=== PATIENT | female | born 2000 | race Caucasian/White ===

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

== ENCOUNTER 2020-10-16 16:17 | Emergency (ER) | payer OTHER ==
[2020-10-16 16:29] VITALS: BP 107/67; PULSE 99; TEMP 98.1; BMI 16.2
[2020-10-16 18:03] LABS: URINE APPEARANCE CLEAR; URINE BILIRUBIN NEGATIVE (NEGATIVE); URINE COLOR YELLOW; URINE GLUCOSE (UA) NEGATIVE (NEGATIVE); URINE KETONE NEGATIVE (NEGATIVE); URINE LEUK ESTERASE NEGATIVE (NEGATIVE); URINE NITRITE NEGATIVE (NEGATIVE); URINE PROTEIN NEGATIVE (NEGATIVE); URINE UROBILINOGEN 0.2 mg/dL (0.2-1.0)
[2020-10-16 18:06] LABS: HCG,QUALITATIVE URINE Negative
== END 2020-10-16 21:02 | disposition home or self-care (01) ==
LOC: JER 16:17
DX: R10.2 Pelvic and perineal pain (principal)
CPT/HCPCS: 36415; 72170-TC-FY; 76830-TC; 81003; 84703; 87086; 87491; 87591; 99284-25

== ENCOUNTER 2022-09-07 19:22 | Emergency (ER) | payer OTHER ==
[2022-09-07 19:28] VITALS: BP 110/61; PULSE 88; RESP 18; TEMP 98; BMI 17.6
[2022-09-07 21:00] LABS: PH,URINE 6.5 (5.0-8.0); URINE APPEARANCE Error; URINE BILIRUBIN NEGATIVE (NEGATIVE); URINE COLOR YELLOW; URINE GLUCOSE (UA) NEGATIVE (NEGATIVE); URINE KETONE NEGATIVE (NEGATIVE); URINE LEUK ESTERASE NEGATIVE (NEGATIVE); URINE NITRITE NEGATIVE (NEGATIVE); URINE PROTEIN NEGATIVE (NEGATIVE); URINE UROBILINOGEN 0.2 mg/dL (0.2-1.0)
[2022-09-07] MEDS ORDERED: IBUPROFEN 600 MG TABLET (FP) PO ONE ×2 (22:23→22:25)
== END 2022-09-07 22:30 | disposition home or self-care (01) ==
LOC: JERFT 19:22
DX: R10.2 Pelvic and perineal pain (principal); R30.0 Dysuria; N83.02 Follicular cyst of left ovary
CPT/HCPCS: 76830-TC; 81003; 84703; 87086; 99284-25